=== PATIENT | female | born 1950 | race Caucasian/White ===

== ENCOUNTER 2019-06-15 15:48 | Emergency (ER) | payer MEDICARE, OTHER ==
[~2019-06-15] VITALS: Ht 175.3 cm; Wt 92.3 kg
[~2019-06-15 15:48] MED LIST: ALBU90AE INHALATION; AZIT250T PO; CODE5LIQ2 PO; MELO15TA30 PO
[2019-06-15 15:55] VITALS: Ht 175.3 cm; Wt 92.3 kg
[2019-06-15] MEDS ORDERED: CEFTRIAXONE 1 GM INJ IM ONE (18:00)
[2019-06-15] MEDS ORDERED: LIDOCAINE 1% (MPF) 5 ML VIAL INFIL ONE (18:00)
[2019-06-15 19:18] VITALS: BP 134/74; PULSE 71; RESP 20
== END 2019-06-15 19:20 | disposition home or self-care (01) ==
LOC: FTE 15:48
DX: S22.31XA Fracture of one rib, right side, initial encounter for closed fracture (principal); J18.9 Pneumonia, unspecified organism; W01.0XXA Fall on same level from slipping, tripping and stumbling without subsequent striking against object, initial encounter; Y92.89 Other specified places as the place of occurrence of the external cause
CPT/HCPCS: 71045; 72072; 72100; 80053; 85025; 96372; 99284; J0696